=== PATIENT | female | born 1960 ===

== ENCOUNTER → 2017-03-20 | Outpatient (CLI) | payer OTHER, MEDICAID ==
[~2017-03-20] MED LIST: REGADENOSON 0.4 MG/5 ML SYR IVP ONE
--- NOTE | 2017-03-20 20:12 | CPIP ---
[f rep st] INVASIVE CARDIAC PROCEDURE DATE OF PROCEDURE: 03/20/2017 PROCEDURE PERFORMED: Adenosine stress test. INDICATIONS: Preoperative assessment. PROCEDURE: Baseline heart rate was 65. Baseline blood pressure 130/86. Baseline EKG showed sinus rh ythm, with no acute ST, T changes. Patient was administered Regadenoson standard procedure. Patient tolerated the infusion well without significant bradycardia. She had a stable EKG without changes. Nuclear images pending. CONCLUSIONS: Uneventful Regadenoson stress test. /[id number]/MODL
== END ==
LOC: FIMAGING 12:51
PROVIDERS: ATTEND Internal Medicine Cardiovascular Disease
DX: Z01.810 Encounter for preprocedural cardiovascular examination (principal); R06.02 Shortness of breath; R94.31 Abnormal electrocardiogram [ECG] [EKG]; R07.9 Chest pain, unspecified
CPT/HCPCS: 78452; 93005; J2785